=== PATIENT | female | born 1995 | race Hispanic/Latino ===

== ENCOUNTER 2017-04-10 23:18 | Emergency (ER) | payer MEDICAID, OTHER | END 2017-04-11 01:03 | disposition home or self-care (01) | LOC: EDH 23:18 | DX: J10.1 Influenza due to other identified influenza virus with other respiratory manifestations (principal) | CPT/HCPCS: 87804 ==

== ENCOUNTER 2017-04-14 06:07 | Emergency (ER) | payer MEDICAID, OTHER | END 2017-04-14 06:27 | disposition home or self-care (01) | LOC: EDH 06:07 | DX: B34.9 Viral infection, unspecified (principal) ==

== ENCOUNTER 2018-08-09 23:47 | Observation (INO) | payer MEDICAID ==
[~2018-08-09] VITALS: Ht 157.5 cm; Wt 111.1 kg
[2018-08-10] MEDS ORDERED: PREN-196 PO (00:12)
[2018-08-10] MEDS ORDERED: FERR-82 PO (00:12)
[2018-08-10 00:37] LABS: APPEARANCE,URINE Clear (CLEAR); BILIRUBIN,URINE Negative (NEGATIVE); COLOR,URINE Yellow (YELLOW); GLUCOSE, URINE (UA) Negative (NEGATIVE); KETONES,URINE Negative (NEGATIVE); LEUKOCYTE ESTERASE ,URINE Moderate (NEGATIVE); NITRATE,URINE Negative (NEGATIVE); OCCULT BLOOD,URINE Negative (NEGATIVE); PH,URINE 6.5 (5.0-8.0); PROTEIN,URINE Negative (NEGATIVE)
[2018-08-10 01:04] LABS: BACTERIA,URINE Rare /HPF (None Seen); RBC,URINE None Seen /HPF (0-1); SQUAMOUS EPITHELIAL CELL,UR Few /HPF (0-2)
[2018-08-10] MEDS ORDERED: DiphenhydrAMINE HCL 50 MG/ML VIAL IV SCH (01:30)
[2018-08-10 01:35] LABS: BASOPHILS % (AUTO) 0.1 % (0.0-5.0); EOSINOPHILS % (AUTO) 0.9 % (0.0-8.0); HEMATOCRIT 33.4 % (36-48); LYMPHOCYTES % (AUTO) 15.4 % (21.0-51.0); MEAN CORPUSCULAR HEMOGLOBIN 27.5 pg (27.0-33.0); MEAN CORPUSCULAR HGB CONC 33.3 g/dL (32.0-36.0); MEAN CORPUSCULAR VOLUME 82.5 fL (79-99); MONOCYTES % (AUTO) 6.7 % (3.0-13.0); NEUTROPHILS % (AUTO) 76.9 % (40.0-77.0); PLATELET COUNT (AUTO) 280 K/uL (130-400); RED BLOOD CELL COUNT(AUTO) 4.04 MIL/uL (4.00-5.50); RED CELL DISTRIBUTION WIDTH 13.5 % (11.0-15.5)
[2018-08-10] MEDS: LACTATED RINGERS 1000ML 1,000 ML IV SCH ×2 (01:42→04:33)
[2018-08-10 01:44] LABS: CREATININE 0.6 mg/dL (0.5-1.5); POTASSIUM 3.7 mmol/L (3.5-5.1)
[2018-08-10 01:50] LABS: ALBUMIN 2.2 g/dL (3.5-5.0); BILIRUBIN,DIRECT 0.1 mg/dL (0.0-0.3); BILIRUBIN,TOTAL 0.3 mg/dL (0.2-1.0); TOTAL PROTEIN, SERUM 6.9 g/dL (6.0-8.3)
== END 2018-08-10 06:50 | disposition home or self-care (01) ==
LOC: EDH 23:47 → LDH 23:48
PROVIDERS: ADMIT Obstetrics & Gynecology; ATTEND Obstetrics & Gynecology
DX: O26.86 Pruritic urticarial papules and plaques of pregnancy (PUPPP) (principal); Z3A.34 34 weeks gestation of pregnancy
CPT/HCPCS: 36415; 80048; 80076; 81001; 85025; 86850; 86900; 86901; 96374; 99284; G0378 ×7; J1200; J7120; 96360; 96361

== ENCOUNTER 2018-08-20 00:18 | Observation (INO) | payer MEDICAID ==
[~2018-08-20] VITALS: Ht 157.5 cm; Wt 113.4 kg
[~2018-08-20 00:18] MED LIST: FERR-82 PO; PREN-196 PO
[2018-08-20 01:14] LABS: BILIRUBIN,URINE Negative (NEGATIVE); COLOR,URINE Yellow (YELLOW); GLUCOSE, URINE (UA) Negative (NEGATIVE); KETONES,URINE Negative (NEGATIVE); LEUKOCYTE ESTERASE ,URINE Moderate (NEGATIVE); NITRATE,URINE Negative (NEGATIVE); OCCULT BLOOD,URINE Negative (NEGATIVE); PH,URINE 6.5 (5.0-8.0); PROTEIN,URINE Negative (NEGATIVE)
[2018-08-20 01:15] LABS: APPEARANCE,URINE HAZY (CLEAR)
[2018-08-20 01:37] LABS: BACTERIA,URINE Few /HPF (None Seen); RBC,URINE None Seen /HPF (0-1); YEAST,URINE BUDDING Rare /HPF (None Seen)
[2018-08-20] MEDS ORDERED: LACTATED RINGERS 1000ML 1,000 ML IV SCH (02:00)
[2018-08-20] MEDS ORDERED: LACTATED RINGERS 1000ML 1,000 ML IV ONE ×2 (02:51)
[2018-08-20 02:58] VITALS: BP 122/61
[2018-08-20] MEDS ORDERED: URSO250T11 PO (03:01)
== END 2018-08-21 11:35 | disposition home or self-care (01) ==
LOC: EDH 00:18 → LDH 00:19
PROVIDERS: ADMIT Obstetrics & Gynecology; ATTEND Obstetrics & Gynecology
DX: O36.8130 Decreased fetal movements, third trimester, not applicable or unspecified (principal); O26.893 Other specified pregnancy related conditions, third trimester; M79.89 Other specified soft tissue disorders; Z3A.36 36 weeks gestation of pregnancy
CPT/HCPCS: 76819 ×2; 81001; 99284; G0378 ×35; J7120 ×3; 96360; 96361

== ENCOUNTER 2018-08-26 10:01 | Observation (INO) | payer MEDICAID ==
[~2018-08-26 10:01] MED LIST changes: +URSO250T11 PO
== END 2018-08-26 11:15 | disposition home or self-care (01) ==
LOC: LDH 10:01
PROVIDERS: ADMIT Obstetrics & Gynecology; ATTEND Obstetrics & Gynecology
DX: O26.893 Other specified pregnancy related conditions, third trimester (principal); Z3A.37 37 weeks gestation of pregnancy
CPT/HCPCS: 76819; G0378